=== PATIENT | male | born 1955 | race Caucasian/White ===

== ENCOUNTER 2019-05-13 17:06 | Emergency (ER) | payer OTHER, SELFPAY ==
[2019-05-13 17:09] VITALS: BP 125/74; PULSE 91; RESP 18; TEMP 36.7; O2SAT 97; BMI 33.3
--- NOTE | 2019-05-13 17:14 | DI.RAD.S_ITS ---
PROCEDURE: XR SHOULDER LT MIN 2V INDICATIONS: left shoulder limited mobility TECHNIQUE: 3 views of the shoulder were acquired. COMPARISON: None. FINDINGS: Bones: No fractures or dislocations, but there is a mild to moderate degree of a.c. joint osteoarthritis. No suspicious bony lesions. Visualized ribs appear intact. Soft tissues: No suspicious soft tissue calcifications. IMPRESSION: No acute trauma found. Mild to moderate a.c. joint osteoarthritis. Dictated by: Sang Betts M.D. on 05/13/2019 at 17:46 Approved by: Sang Betts M.D. on 05/13/2019 at 17:47
[2019-05-13 18:22] VITALS: BP 138/84; PULSE 89; RESP 16; O2SAT 98
--- NOTE | 2019-05-13 18:34 | ED.EXTPRO ---
HPI - Extremity Problem General Chief complaint: Extremity Problem,Nontraumatic Stated complaint: cant move his left arm, woke up like this Time Seen by Provider: 05/13/19 18:33 Source: patient Mode of arrival: ambulatory Limitations: no limitations History of Present Illness HPI Narrative: The patient awoke this morning with left arm weakness. he also complains of severe pain left shoulder, he is not willing to move the shoulder/arm. He was well when he went to bed. He had no pain or weakness. he carried groceries yesterday, nothing more strenuous. The pain has been ongoing throughout the course today. He has no visual changes, dysarthria, confusion, or other weakness or numbness. There is no numbness in left arm. He is right arm dominant. He is on medications for hypertension, hyperlipidemia, in takes meloxicam for bilateral knee arthritis. He has no history of arthritis in left shoulder. He has no history of CVA. There is no lower extremity weakness or numbness, he is ambulatory without issues. Related Data Home Medications Medication Instructions Recorded Confirmed SALSALATE 500 mg PO TID #0 04/02/13 amlodipine [Norvasc] 2.5 mg PO QDAY #0 04/02/13 aspirin 81 mg PO QDAY #0 04/02/13 atenolol 25 mg PO QDAY #0 04/02/13 lisinopril 20 mg PO QDAY #0 04/02/13 omeprazole 20 mg PO QDAY #0 04/02/13 simvastatin 20 mg PO QDAY #0 04/02/13 Previous Rx's Medication Instructions Recorded tramadol 50 mg PO Q6-8H PRN #20 tab 05/13/19 Allergies Allergy/AdvReac Type Severity Reaction Status Date / Time No Known Drug Allergies Allergy Verified 05/13/19 17:09 Review of Systems Constitutional Denies body ache(s), Denies fatigue, Denies frequent falls and Denies headache(s) Eyes Denies blind spots and Denies blurry vision ENT Ears, Nose, Mouth, and Throat: Denies abnormal hearing and Denies headache(s) Cardiovascular Denies chest pain, Denies irregular heart rhythm, Denies lightheadedness, Denies palpitations, Denies dyspnea and Denies orthopnea Respiratory Denies cough and Denies dyspnea Gastrointestinal Gastrointestinal: Denies abdominal pain Comments: Lower GI bright red blood Musculoskeletal Reports as per HPI Integumentary/Breasts Denies erythema and Denies rash Neurologic Denies abnormal hearing, Denies frequent falls and Denies headache(s) Endocrine Denies fatigue and Denies palpitations [facility] Medical History (Updated 05/14/19 @ 01:24 by Adonis Mendez MD) Hyperlipidemia (Acute) Hypertension (Acute) Surgical History (Updated 05/14/19 @ 01:25 by Adonis Mendez MD) No pertinent past surgical history (Acute) Social History Smoking Status: Former smoker Social History Smoking Status: Former smoker Exam Initial Vital Signs Initial Vital Signs: Vital Signs Temperature 98.1 F 05/13/19 17:09 Pulse Rate 91 H 05/13/19 17:09 Respiratory Rate 18 05/13/19 17:09 Blood Pressure 125/74 05/13/19 17:09 Pulse Oximetry 97 05/13/19 17:09 Const General: cooperative and well developed Nutritional Appearance: well nourished Orientation: alert, awake, oriented x3 and not confused HENMT Throat: other (No ENT complaints) Eyes Conjunctivae: conjunctivae normal Pupils: PERRL and pupil size EOM: EOM intact bilaterally Other: No visual field changes. Neck Neck: No lymphadenopathy and No JVD Resp Auscultation: clear to auscultation bilaterally Cardio Rate: regular rate Rhythm: regular rhythm Heart Sounds: S1 normal, S2 normal, no click, no gallops and no murmurs GI Inspection: non-distended Palpation: soft, no hepatosplenomegaly, No guarding, No pulsatile mass and No tender Auscultation: normal bowel sounds Back/Spine/Pelvis Back: normal to inspection Skin General: no rashes or lesions noted Neuro General: alert, oriented x3, gait normal and no focal motor deficits Cognition: normal cognition Speech: speech normal Extrem Other: Tenderness in left shoulder at the AC joint, and left deltoid muscle. He has significant pain with palpation, and motion the shoulder. He cannot hold a left arm straight raise due to the severity of the pain. he has no forearm, wrist or hand weakness or numbness. Scores NIH Stroke Scale Level of Conciousness: Alert, keenly responsive Ask month/age: Answers both questions correctly. Open/close eyes, close hand: Performs both tasks correctly Best gaze horizontal: Normal Visual martin: No visual loss Facial palsy: Normal symetrical movement Left arm drift: No drift for full 10 sec Right arm drift: No drift for full 10 sec Left leg drift: No drift for full 10 sec Right leg drift: No drift for full 10 sec Limb ataxia: Absent Sensory on face/arms/legs: Normal, no sensory loss Course Course Narrative: The patient's of shoulder pain improved significantly after receiving IM Toradol. He has significant increase in functional left arm. Left shoulder x-ray was concerned significant for AC joint osteoarthritis. He is on meloxicam, he will be discharged with tramadol as needed with the meloxicam is not sufficient. I suggested follow-up with his doctor, suggesting a physical therapy consultation. Orders Ordered: ED Orders 05/13/19 17:14 XR shoulder LT min 2V Stat Discontinued Medications Ketorolac Tromethamine (Toradol) 60 mg IM NOW ONE Stop: 05/13/19 18:43 Last Admin: 05/13/19 18:53 Dose: 60 mg Vital Signs - 8 hr 05/13/19 18:22 05/13/19 19:47 Pulse Rate 89 79 Respiratory Rate 16 18 Blood Pressure [Right Arm] 138/84 131/80 Pulse Oximetry 98 94 MDM - Extremity (Nontraumatic) Imaging Data Left shoulder x-ray:: Radiologist's impression: Left AC joint osteoarthritis. Discharge Plan Departure Patient Disposition: Home Clinical Impression: Localized osteoarthritis of left shoulder Discharge Date/Time: 05/13/19 19:58 Interventions: ED Discharge Assessment Last Done: 05/13/19 19:58 Instructions: DI for Osteoarthritis Activity Restrictions/Additional Instructions: Use meloxicam as prescribed for pain. Tramadol 1 tablet every 6 hours as necessary for added pain control. Follow-up with her doctor next week. If your shoulder is not improving physical therapy may help. Return to the ER as necessary. Prescriptions: New tramadol 50 mg tablet 50 mg PO Q6-8H PRN (Reason: pain) Qty: 20 RF: 0 No Action lisinopril 20 MG tablet 20 mg PO QDAY Qty: 0 RF: 0 atenolol 25 MG tablet 25 mg PO QDAY Qty: 0 RF: 0 amlodipine [Norvasc] 2.5 MG tablet 2.5 mg PO QDAY Qty: 0 RF: 0 aspirin 81 MG tablet,delayed release (DR/EC) 81 mg PO QDAY Qty: 0 RF: 0 simvastatin 40 MG tablet 20 mg PO QDAY Qty: 0 RF: 0 omeprazole 20 MG capsule,delayed release(DR/EC) 20 mg PO QDAY Qty: 0 RF: 0 SALSALATE 500 mg PO TID Qty: 0 RF: 0
[2019-05-13] MEDS: KETOROLAC 60 MG/2 ML VIAL IM (18:53)
[2019-05-13 19:47] VITALS: BP 131/80; PULSE 79; RESP 18; O2SAT 94
== END 2019-05-13 19:58 | disposition home or self-care (01) ==
PROVIDERS: Emergency Provider Emergency Medicine
DX: M19.012 Primary osteoarthritis, left shoulder (principal)
CPT/HCPCS: 73030; 96374; 99283; J1885

== ENCOUNTER 2024-04-21 08:30 | Outpatient (RCR) | payer OTHER, SELFPAY | END 2024-04-21 10:30 | LOC: CAR 08:30 | PROVIDERS: Referring Provider Internal Medicine Interventional Cardiology; Visit Provider Internal Medicine Interventional Cardiology | DX: I25.10 Atherosclerotic heart disease of native coronary artery without angina pectoris (principal) | CPT/HCPCS: 93798 ==